=== PATIENT | female | born 1950 | race Caucasian/White ===

== ENCOUNTER 2017-07-15 11:52 | Emergency (ER) | payer MEDICARE ==
[~2017-07-15] VITALS: Ht 160 cm; Wt 108.0 kg
[2017-07-15 11:58] VITALS: BP_SYST 171; BP_SYST 199; BP_DIAS 82; PULSE 71; RESP 18; TEMP 98.5; O2SAT 96
--- NOTE | 2017-07-15 12:39 | PD ---
HPI Chief Complaint: Respiratory Symptoms Time Seen by Provider: 12:28 Travel History International Travel<30 days: No Contact w/Intl Traveler<30days: No Traveled to known affect area: No History of Present Illness HPI This 66-year-old female is complaining of shortness of breath. She has a history of asthma and atrial fibrillation. She went on a cruise with some friends. She got back couple of days ago. They SICK with cough and congestion. She went to a urgent care center yesterday and was given prednisone and amoxicillin. She is still short of breath. She is coughing a lot. PFSH Past Medical History Cardiovascular Problems: Yes (CHOL) Diabetes: No Respiratory: Yes (ASTHMA) ?: Not Social History Tobacco Use: No Allergies-Medications (Allergen,Severity, Reaction): Coded Allergies: Sulfa (Sulfonamide Antibiotics) (Verified Allergy, Severe, 07/15/17) Reported Meds & Prescriptions Reported Meds & Active Scripts Active Reported Warfarin 6 Mg Tab 6 Mg PO ,,,,, Warfarin 3 Mg Tab 3 Mg PO FRIDAY Trospium ER 60 Mg Cap 60 Mg PO DAILY Paroxetine (Paroxetine HCl) 40 Mg Tab 40 Mg PO DAILY Omeprazole 20 Mg Tab 20 Mg PO DAILY Montelukast (Montelukast Sodium) 10 Mg Tab 10 Mg PO HS Lyrica (Pregabalin) 150 Mg Cap 150 Mg PO BID Claritin (Loratadine) 10 Mg Cap 10 Mg PO DAILY Levothyroxine (Levothyroxine Sodium) 300 Mcg Tab 300 Mcg PO DAILY Erythromycin Opth Oint 5 Mg/Gm Oint 1 Applic EACH EYE BID Hydrocodone-Acetaminophen 5-325 mg Tab 1 Tab PO Q6H PRN Fluticasone Nasal Apison 50 Mcg/Act Naspr 50 Mcg EACH NARE BID 50 mcg/spray Ferrous Sulfate 325 Mg (65 Mg Iron) Tablet 325 Mg PO BIDPC Docusate Sodium 100 Mg Cap 100 Mg PO BID Diltiazem (Diltiazem HCl) 30 Mg Tab 30 Mg PO BID Digox (Digoxin) 0.125 Mg Tab 0.125 Mg PO DAILY Clotrimazole Topical (Clotrimazole) 1% Soln 1 Applic TOPICAL BID Bupropion HCl ER 24 HR (Bupropion HCl) 150 Mg Tab 150 Mg PO DAILY Baclofen 10 Mg Tab 10 Mg PO Q8HR Atorvastatin (Atorvastatin Calcium) 40 Mg Tab 40 Mg PO HS Ventolin Hfa 18 GM Inh (Albuterol Sulfate) 90 Mcg/Act Aer 2 Puff INH Q6H PRN Advair Diskus Inh (Fluticasone-Salmeterol Inh) 500-50 Mcg/Blist Aer 1 Puff INH BID Rinse mouth after use. Acyclovir 400 Mg Tab 400 Mg PO BID Review of Systems General / Constitutional: No: Fever, Chills Eyes: No: Diploplia, Blurred Vision HENT: No: Headaches, Vertigo Cardiovascular: No: Chest Pain or Discomfort Respiratory: Positive: Cough, Shortness of Breath, Wheezing Gastrointestinal: No: Vomiting, Diarrhea Genitourinary: No: Urgency Musculoskeletal: No: Myalgias Skin: No Rash, No Itching Neurologic: No: Weakness, Dizziness Hematologic/Lymphatic: No: Easy Bruising Physical Exam Narrative GENERAL: Well-developed female SKIN: Focused skin assessment warm/dry. HEAD: Atraumatic. Normocephalic. EYES: Pupils equal and round. No scleral icterus. No injection or drainage. ENT: No nasal bleeding or discharge. Mucous membranes pink and moist. NECK: Trachea midline. No JVD. CARDIOVASCULAR: Regular rate and rhythm. No murmur appreciated. RESPIRATORY: There is accessory muscle use. There is bilateral expiratory wheezing GASTROINTESTINAL: Abdomen soft, non-tender, nondistended. Hepatic and splenic margins not palpable. MUSCULOSKELETAL: No obvious deformities. No clubbing. No cyanosis. No edema. NEUROLOGICAL: Awake and alert. No obvious cranial nerve deficits. Motor grossly within normal limits. Normal speech. PSYCHIATRIC: Appropriate mood and affect; insight and judgment normal. Data Data Last Documented VS Vital Signs Date Time Temp Pulse Resp B/P (MAP) Pulse Ox O2 Delivery O2 Flow Rate FiO2 07/15/17 13:59 81 169/76 (107) 96 07/15/17 11:58 98.5 18 Orders Orders Chest, Single Ap (07/15/17 12:35) Prednisone (Deltasone) (07/15/17 12:45) Albuterol-Ipratropium Neb (Duoneb Neb) (07/15/17 12:45) Electrocardiogram (07/15/17 13:02) Complete Blood Count With Diff (07/15/17 13:02) Comprehensive Metabolic Panel (07/15/17 13:02) B-Type Natriuretic Peptide (07/15/17 13:02) Blood Culture (07/15/17 13:02) Labs Laboratory Tests Test 07/15/17 13:21 White Blood Count 5.0 TH/MM3 Red Blood Count 3.98 MIL/MM3 Hemoglobin 12.3 GM/DL Hematocrit 37.3 % Mean Corpuscular Volume 93.9 FL Mean Corpuscular Hemoglobin 30.9 PG Mean Corpuscular Hemoglobin Concent 32.9 % Red Cell Distribution Width 12.5 % Platelet Count 113 TH/MM3 Mean Platelet Volume 8.5 FL Neutrophils (%) (Auto) 79.4 % Lymphocytes (%) (Auto) 15.0 % Monocytes (%) (Auto) 5.4 % Eosinophils (%) (Auto) 0.0 % Basophils (%) (Auto) 0.2 % Neutrophils # (Auto) 4.0 TH/MM3 Lymphocytes # (Auto) 0.7 TH/MM3 Monocytes # (Auto) 0.3 TH/MM3 Eosinophils # (Auto) 0.0 TH/MM3 Basophils # (Auto) 0.0 TH/MM3 CBC Comment DIFF FINAL Differential Comment Blood Urea Nitrogen 15 MG/DL Creatinine 0.65 MG/DL Random Glucose 191 MG/DL Total Protein 6.2 GM/DL Albumin 3.7 GM/DL Calcium Level 8.2 MG/DL Alkaline Phosphatase 90 U/L Aspartate Amino Transf (AST/SGOT) 23 U/L Alanine Aminotransferase (ALT/SGPT) 28 U/L Total Bilirubin 0.5 MG/DL Sodium Level 143 MEQ/L Potassium Level 3.4 MEQ/L Chloride Level 108 MEQ/L Carbon Dioxide Level 28.2 MEQ/L Anion Gap 7 MEQ/L Estimat Glomerular Filtration Rate 92 ML/MIN B-Type Natriuretic Peptide 181 PG/ML [facility] Medical Decision Making Medical Screen Exam Complete: Yes Emergency Medical Condition: Yes Medical Record Reviewed: Yes Differential Diagnosis Differential includes CHF, pneumonia, asthma Narrative Course Chest x-ray shows mild cardiomegaly and prominence of both hilar regions which may be vascular. There is also prominence of interstitial lung markings which may represent scarring or fibrosis. Pulmonary edema is less likely. I have ordered lab work. Her BNP is normal. White count is 5000. She's been given additional prednisone and nebulizer treatments. Repeat exam shows some persistent wheezing. Her oxygen saturation is 96% patient versus discharge was discussed and she wishes to try at home. I will prescribe a larger dose of prednisone. Diagnosis Primary Impression: Asthma Scripts Ipratropium HFA 12.9 GM Inh (Atrovent HFA 12.9 GM Inh) 17 Mcg/Actuation Aer 2 PUFF INH QID, #1 INHALER 0 Refills Prov: Harshad Kowalski MD 07/15/17 Prednisone (Prednisone) 20 Mg Tab 20 MG PO DIRECTED, #24 TAB 0 Refills Take 60 MG daily x 4 days, then 40 MG x 4 days, then 20 MG daily x 4 days. Prov: Harshad Kowalski MD 07/15/17 Disposition: DISCHARGE HOME Condition: Stable Harshad Kowalski MD Jul 15, 2017 12:39
[2017-07-15] MEDS ORDERED: RESP: ALBUTEROL 2.5 MG/IPRATROPIUM 0.5 MG NEB (SCH) NEB ONE (12:45)
[2017-07-15] MEDS ORDERED: predniSONE 20 MG TAB PO ONE (12:45)
--- NOTE | 2017-07-15 13:03 | RADRPT ---
EXAM DATE/TIME: 07/15/2017 12:47 [place] COMPARISON: No previous studies available for comparison. INDICATIONS : Short of breath and cough for 4 days. MEDICAL HISTORY : None. SURGICAL HISTORY : None. ENCOUNTER: Initial ACUITY: 4 - 6 days PAIN SCORE: 2/10 LOCATION: Bilateral chest FINDINGS: A single AP portable view of the chest was obtained and demonstrates mild cardiomegaly. There is prom inence of both hilar regions. There is diffuse interstitial prominence with no focal confluent infilt rate or effusion. The bony thorax is intact. There are overlying oxygen tubing. There is a mild scoli osis. CONCLUSION: 1. Mild cardiomegaly as well as prominence of both hilar regions which likely is vascular. 2. Prominence of interstitial lung markings which may represent scarring or fibrosis. Pulmonary edema is less likely. There is no effusion. Sushil Awad MD on July 15, 2017 at 12:59 Board Certified Radiologist. This report was verified electronically.
[2017-07-15] MEDS ORDERED: FERR325T18 PO (13:06)
[2017-07-15] MEDS ORDERED: ATOR40TA16 PO (13:06)
[2017-07-15] MEDS ORDERED: HYDR-3516 PO (13:06)
[2017-07-15] MEDS ORDERED: BACL10TA PO (13:06)
[2017-07-15] MEDS ORDERED: DILT30TA PO (13:06)
[2017-07-15] MEDS ORDERED: LYRI150C PO (13:06)
[2017-07-15] MEDS ORDERED: VENTAER INH (13:06)
[2017-07-15] MEDS ORDERED: PARO40TA2 PO (13:06)
[2017-07-15] MEDS ORDERED: CLOTR1%T TOPICAL (13:06)
[2017-07-15] MEDS ORDERED: BUPR150T3 PO (13:06)
[2017-07-15] MEDS ORDERED: ADVA500A INH (13:06)
[2017-07-15] MEDS ORDERED: MONT10TA4 PO (13:06)
[2017-07-15] MEDS ORDERED: ERYTOIN10 EACH EYE (13:06)
[2017-07-15] MEDS ORDERED: CLAR10CA3 PO (13:06)
[2017-07-15] MEDS ORDERED: TROS60CA2 PO (13:06)
[2017-07-15] MEDS ORDERED: FLUT50SP EACH NARE (13:06)
[2017-07-15] MEDS ORDERED: WARF-58 PO (13:06)
[2017-07-15] MEDS ORDERED: DIGO0.127 PO (13:06)
[2017-07-15] MEDS ORDERED: OMEP20TA93 PO (13:06)
[2017-07-15] MEDS ORDERED: DOCU100C15 PO (13:06)
[2017-07-15] MEDS ORDERED: WARF-60 PO (13:06)
[2017-07-15] MEDS ORDERED: LEVO-171 PO (13:06)
[2017-07-15] MEDS ORDERED: ACYC400T PO (13:06)
[2017-07-15 13:37] LABS: BASOPHIL % 0.2 % (0.0-2.0); HEMATOCRIT 37.3 % (35.0-46.0); HEMOGLOBIN 12.3 GM/DL (11.6-15.3); LYMPHOCYTE # 0.7 TH/MM3 (1.0-4.8); MEAN CELL VOLUME 93.9 FL (80.0-100.0); MEAN CORPUSCULAR HEMOGLOBIN 30.9 PG (27.0-34.0); MEAN CORPUSCULAR HGB CONC 32.9 % (32.0-36.0); MEAN PLATELET VOLUME 8.5 FL (7.0-11.0); MONO % 5.4 % (0.0-8.0); MONOCYTE # 0.3 TH/MM3 (0-0.9); NEUT % 79.4 % (16.0-70.0); PLATELET COUNT 113 TH/MM3 (150-450); RED BLOOD COUNT 3.98 MIL/MM3 (4.00-5.30); RED CELL DISTRIBUTION WIDTH 12.5 % (11.6-17.2)
[2017-07-15 13:45] LABS: CHLORIDE 108 MEQ/L (98-107); SODIUM (NA) 143 MEQ/L (136-145)
[2017-07-15 13:48] LABS: ALBUMIN 3.7 GM/DL (3.4-5.0); BICARBONATE 28.2 MEQ/L (21.0-32.0); CALCIUM 8.2 MG/DL (8.5-10.1); GLUCOSE,RANDOM 191 MG/DL (74-106)
[2017-07-15 13:49] LABS: BLOOD UREA NITROGEN 15 MG/DL (7-18)
[2017-07-15 13:51] LABS: ALT (GPT) 28 U/L (10-53)
[2017-07-15 13:52] LABS: AST (GOT) 23 U/L (15-37); CREATININE 0.65 MG/DL (0.50-1.00); GLOMERULAR FILTRATION RATE 92 ML/MIN (>89)
[2017-07-15 13:53] LABS: TOTAL BILIRUBIN ADULT 0.5 MG/DL (0.2-1.0); TOTAL PROTEIN 6.2 GM/DL (6.4-8.2)
[2017-07-15 13:54] LABS: ALKALINE PHOSPHATASE 90 U/L (45-117)
[2017-07-15 13:59] VITALS: BP 169/76; PULSE 81; O2SAT 96
[2017-07-15] MEDS ORDERED: PRED20 PO (14:18)
[2017-07-15] MEDS ORDERED: IPRA17I INH (14:18)
[2017-07-15] MEDS ORDERED: POTASSIUM CHLORIDE 20 MEQ CONTROLLED RELEASE TAB PO ONE (14:30)
--- NOTE | 2017-07-16 10:29 | EKG ---
Date Performed: 07/15/2017 Time Performed: 13:13:10 PTAGE: 66 years EKG: ATRIAL FIBRILLATION BORDERLINE LEFT AXIS DEVIATION NONSPECIFIC ST & T-WAVE ABNORMALITY ABNO RMAL RHYTHM ECG NO PREVIOUS TRACING DOCTOR: Boogie Martin Interpretating Date/Time 07/16/2017 10:28:22
== END 2017-07-15 14:42 | disposition home or self-care (01) ==
LOC: PHED 11:52
DX: J45.909 Unspecified asthma, uncomplicated (principal); I48.91 Unspecified atrial fibrillation; E78.00 Pure hypercholesterolemia, unspecified; R94.31 Abnormal electrocardiogram [ECG] [EKG]
CPT/HCPCS: 71045; 80053; 83880; 85025; 87040; 93005; 94664; 99285; J7512